=== PATIENT | male | born 1980 | race Caucasian/White ===

== ENCOUNTER 2017-09-08 08:22 | Emergency (ER) | payer OTHER, MEDICAID ==
[~2017-09-08] VITALS: Ht 175.3 cm; Wt 74.8 kg
[2017-09-08 08:28] VITALS: BP_SYST 143
[2017-09-08 09:08] VITALS: BP_SYST 138
== END 2017-09-08 09:08 ==
LOC: SED 08:22
DX: Z02.89 Encounter for other administrative examinations (principal)
CPT/HCPCS: 99283